=== PATIENT | male | born 1975 ===

== ENCOUNTER 2021-01-25 17:04 | Emergency (ER) | payer BC ==
[2021-01-25] MEDS ORDERED: METOPROLOL TARTRATE 5 MG/5 ML INJ IV ONE ×2 (17:24→21:28)
[2021-01-25 17:40] LABS: Basophils % 0.3 % (0-1.3); Hematocrit 50.4 % (39.6-49.0); Lymphocytes % 11.5 % (15.3-44.8); MPV 7.1 fL (7.6-11.3); RBC Red Blood Cell Count 5.26 M/uL (4.33-5.43)
[2021-01-25 17:58] LABS: Protime INR 0.99
[2021-01-25 18:10] LABS: ALT/SGPT 44 U/L (12-78); AST/SGOT 43 U/L (15-37); Albumin 3.8 g/dL (3.4-5.0); Alkaline Phosphatase 81 U/L (45-117); BUN Blood Urea Nitrogen 19 mg/dL (7-18); Bicarbonate 25 mmol/L (21-32); Bilirubin Direct 0.2 mg/dL (0-0.2); Bilirubin Total 0.7 mg/dL (0.2-1.0); Glucose Level 94 mg/dL (74-106); NT PRO-BNP 26 pg/mL (<125); Potassium 3.3 mmol/L (3.5-5.1); Sodium Level 136 mmol/L (136-145); Troponin (Emerg Dept Use Only) < 0.02 ng/mL (0.0-0.045)
[2021-01-25 18:13] LABS: Magnesium 1.4 mg/dL (1.8-2.4)
[2021-01-25] MEDS ORDERED: POTASSIUM CL SA 10 MEQ TAB PO ONE (18:16)
[2021-01-25] MEDS ORDERED: Magnesium Sulfate 2gm IVPB 2 G/50 ML BAG IV ONE (18:17)
--- NOTE | 2021-01-25 18:17 | RAD REPORT ---
EXAM DESCRIPTION: RAD - Chest Single View - 01/25/2021 5:48 pm CLINICAL HISTORY: chest pain, sob COMPARISON: None TECHNIQUE: AP portable chest image was obtained 01/25/2021 5:48 pm . FINDINGS: Lungs are clear. Heart and vasculature are normal. No measurable pleural effusion and no p neumothorax. No acute bony abnormality seen. No acute aortic findings suspected. IMPRESSION: No acute cardiopulmonary process.
[2021-01-25] MEDS ORDERED: NA CHLORIDE 0.9% 1,000 ML ONE (21:28)
[2021-01-25] MEDS ORDERED: METOPROLOL TAR 25 MG TAB ONE (21:28)
--- NOTE | 2021-01-25 22:40 | EDPHYS ---
Physician Documentation [facility] Name: Ayana Chacko III Age: 45 yrs Sex: Male : 1975 Arrival Date: 01/25/2021 Time: 17:04 Bed 14 Private MD: Steffen Abraham R ED Physician Emil Gonzalez HPI: 01/25 17:12 This 45 yrs old Male presents to ER via Ambulatory with complaints of heart jmm rate racing. 17:12 The patient presents with a history of heart racing. Context: The symptoms occur jmm without known cause. Onset: The symptoms/episode began/occurred acutely, today. Duration: The patient or guardian reports a single episode, that is still ongoing. Modifying factors: The symptoms are aggravated by nothing. The symptoms are alleviated by nothing. This is a 45-year-old male with no chronic medical conditions presents emerged department with complaints of racing heartbeat. This occurred while the patient was at work. Patient states he does perform strenuous activity but this is never occurred before. Patient states that he used to be prescribed a blood pressure medication but is currently not taking it. Denies chest pain but states feeling quite anxious.. Historical: - Allergies: 17:10 No Known Allergies; ld1 - Home Meds: 17:10 None [Active]; ld1 - PMHx: 17:10 None; ld1 - PSHx: 17:10 None; ld1 - Immunization history:: Adult Immunizations up to date, Client reports receiving the 2nd dose of the Covid vaccine. - Social history:: Smoking status: Patient reports the use of cigarette tobacco products, denies chronic smoking, but will smoke occasionally, Patient uses alcohol, occasionally. ROS: 17:12 Constitutional: Negative for fever, chills, and weight loss. jmm 17:12 Cardiovascular: Positive for palpitations. 17:12 All other systems are negative. Exam: 17:12 Head/Face: atraumatic. Eyes: EOMI, no conjunctival erythema appreciated ENT: Moist jmm Mucus Membranes Neck: Trachea midline, Supple Chest/axilla: Normal chest wall appearance and motion. 17:12 Respiratory: Normal respirations, no respiratory distress appreciated Abdomen/GI: Non distended, soft Back: Normal ROM Skin: General appearance color normal MS/ Extremity: Moves all extremities, no obvious deformities appreciated, no edema noted to the lower extremities Neuro: Awake and alert, normal gait Psych: Behavior is normal, Mood is normal, Patient is cooperative and pleasant 17:12 Constitutional: The patient appears alert, awake, anxious, uncomfortable. 17:12 Cardiovascular: Rate: tachycardic, Rhythm: regular. Vital Signs: 17:08 BP 186 / 117; Pulse 127; Resp 18; Temp 97.8(TE); Pulse Ox 100% on R/A; Weight 113.4 kg; ld1 Height 6 ft. 1 in. (185.42 cm); Pain 0/10; 18:15 BP 162 / 103; Pulse 82; Resp 16; Pulse Ox 99% on R/A; bp 19:19 BP 178 / 104; Pulse 83; Resp 16; Pulse Ox 99% on R/A; bp 19:20 BP 169 / 99; bp 20:21 BP 177 / 92; Pulse 92; Resp 20 S; Pulse Ox 95% on R/A; bb 21:30 BP 161 / 90; Pulse 98; Resp 18 S; Pulse Ox 97% on R/A; bb 22:30 BP 150 / 94; Pulse 78; Resp 18; Pulse Ox 96% ; lc1 22:55 BP 150 / 94; Pulse 75; Resp 16; Temp 98.2; Pulse Ox 97% ; ds4 17:08 Body Mass Index 32.98 (113.40 kg, 185.42 cm) ld1 MDM: 17:25 Patient medically screened. [facility] 22:39 Data reviewed: vital signs, nurses notes. Counseling: I had a detailed discussion with yareli the patient and/or guardian regarding: the historical points, exam findings, and any diagnostic results supporting the discharge/admit diagnosis, the need for outpatient follow up, to return to the emergency department if symptoms worsen or persist or if there are any questions or concerns that arise at home. 01/26 01:04 Refusal of service: The patient/guardian displays adequate decision making capability [facility] and despite a detailed discussion of alternatives, benefits, risks, and consequences refuses: Admission to the hospital for further work-up and treatment. ED course: Patient states feeling much better after medication. I did give the patient the option for observation versus follow-up with his primary care provider. Patient elected follow-up this primary care provider tomorrow and was otherwise given strict return precautions. Patient understood and agrees to plan of care.. 01/25 17:12 Order name: Basic Metabolic Panel [facility] 01/25 17:12 Order name: CBC with Diff [facility] 01/25 17:12 Order name: LFT's [facility] 01/25 17:12 Order name: Magnesium [facility] 01/25 17:12 Order name: NT PRO-BNP [facility] 01/25 17:12 Order name: PT-INR [facility] 01/25 17:12 Order name: Troponin (emerg Dept Use Only); Complete Time: 18:15 [facility] 01/25 17:12 Order name: SARS-COV-2 RT PCR (Document "Date of Onset" if Symptomatic); Complete Time: [facility] 18:29 01/25 17:13 Order name: Basic Metabolic Panel; Complete Time: 18:15 [facility] 01/25 17:13 Order name: CBC with Automated Diff; Complete Time: 17:49 [facility] 01/25 17:13 Order name: Liver (Hepatic) Function; Complete Time: 18:15 [facility] 01/25 17:13 Order name: Magnesium; Complete Time: 18:15 [facility] 01/25 17:13 Order name: NT PRO-BNP; Complete Time: 18:15 [facility] 01/25 17:13 Order name: Protime (+INR); Complete Time: 17:59 [facility] 01/25 17:12 Order name: XRAY Chest (1 view); Complete Time: 18:19 [facility] 01/25 17:12 Order name: EKG; Complete Time: 17:13 [facility] 01/25 17:12 Order name: Cardiac monitoring; Complete Time: 17:20 [facility] 01/25 17:12 Order name: EKG - Nurse/Tech; Complete Time: 17:20 [facility] 01/25 17:12 Order name: IV Saline Lock; Complete Time: 17:20 [facility] 01/25 17:12 Order name: Labs collected and sent; Complete Time: 17:33 [facility] 01/25 17:12 Order name: O2 Per Protocol; Complete Time: 17:20 [facility] 01/25 18:16 Order name: CPK; Complete Time: 19:13 [facility] 01/25 21:16 Order name: CT Chest For PE Angio [facility] 01/25 17:12 Order name: O2 Sat Monitoring; Complete Time: 17:20 [facility] Administered Medications: 11/17 17:30 Drug: Metoprolol 5 mg Route: IVP; Site: right antecubital; bp 22:42 Follow up: Response: No adverse reaction lc1 17:32 Drug: NS 0.9% 1000 ml Route: IV; Rate: 1 bolus; Site: right antecubital; bp 18:30 Follow up: IV Status: Completed infusion; IV Intake: 900ml bb 18:31 Drug: Magnesium Sulfate 2 grams Route: IVPB; Infused Over: 2 hrs; Site: right bp antecubital; 20:21 Follow up: IV Status: Completed infusion; IV Intake: 100ml bb 18:31 Drug: Potassium Chloride 40 mEq Route: PO; bp 20:21 Follow up: Response: No adverse reaction bb 21:30 Drug: NS 0.9% 1000 ml Route: IV; Rate: 1 bolus; Site: right antecubital; bb 23:12 Follow up: IV Status: Order to discontinue infusion; IV Intake: 300ml bb 21:41 Drug: Metoprolol 25 mg Route: PO; bb 22:30 Follow up: Response: No adverse reaction bb 22:43 Follow up: Response: No adverse reaction lc1 21:41 Drug: Metoprolol 2.5 mg Route: IVP; Site: right antecubital; bb 22:43 Follow up: Response: Blood pressure is lowered lc1 Disposition Summary: 01/25/21 22:40 Discharge Ordered Location: Home [facility] Condition: Stable [facility] Diagnosis - Tachycardia, unspecified [facility] Followup: [facility] - With: Steffen Abraham MD - When: Tomorrow - Reason: Recheck today's complaints, Continuance of care, Re-evaluation by your physician Discharge Instructions: - Discharge Summary Sheet [facility] - Sinus Tachycardia [facility] Forms: - Medication Reconciliation Form [facility] - Thank You Letter [facility] - Antibiotic Education [facility] - Prescription Opioid Use [facility] Addendum: 01/28/2021 07:38 Co-signature as Attending Physician, Emil Gonzalez MD I agree with the assessment and r n plan of care. Attestation: The patient's history, exam findings, diagnostics, and a summary of any interventions or procedures was reviewed in detail with Travis WRIGHT. Signatures: Dispatcher [employer] Travis Gutierrez PA PA jmm Ballard, Brenda, RN RN bb Emil Gonzalez MD MD rn Peltier, Brian, RN RN bp Regi Arechiga RN RN ld1 Marsha Wiggins
--- NOTE | 2021-01-25 22:40 | ER ---
Nurse's Notes [facility] Name: Ayana Chacko III Age: 45 yrs Sex: Male : 1975 Arrival Date: 01/25/2021 Time: 17:04 Bed 14 Private MD: Steffen Abraham R Diagnosis: Tachycardia, unspecified Presentation: 01/25 17:08 Chief complaint: Patient states: I got home around 3:45 from work this evening and I ld1 started to feel like my heart was racing. Coronavirus screen: At this time, the client does not indicate any symptoms associated with coronavirus-19. Ebola Screen: No symptoms or risks identified at this time. Initial Sepsis Screen: Does the patient meet any 2 criteria? No. Patient's initial sepsis screen is negative. Does the patient have a suspected source of infection? No. Patient's initial sepsis screen is negative. Risk Assessment: Do you want to hurt yourself or someone else? Patient reports no desire to harm self or others. Onset of symptoms was January 25, 2021. 17:08 Method Of Arrival: Ambulatory ld1 17:08 Acuity: ANTHONY 3 ld1 Triage Assessment: 17:10 General: Appears in no apparent distress. comfortable, Behavior is calm, cooperative, ld1 appropriate for age. Pain: Denies pain. EENT: No signs and/or symptoms were reported regarding the EENT system. Neuro: Level of Consciousness is awake, alert, obeys commands, Oriented to person, place, time, situation. Cardiovascular: Capillary refill < 3 seconds Patient's skin is warm and dry. Rhythm is sinus tachycardia. Respiratory: Airway is patent Respiratory effort is even, labored, Respiratory pattern is regular, symmetrical. GI: Abdomen is flat, non-distended. : No signs and/or symptoms were reported regarding the genitourinary system. Derm: No signs and/or symptoms reported regarding the dermatologic system. Musculoskeletal: No signs and/or symptoms reported regarding the musculoskeletal system. Historical: - Allergies: 17:10 No Known Allergies; ld1 - Home Meds: 17:10 None [Active]; ld1 - PMHx: 17:10 None; ld1 - PSHx: 17:10 None; ld1 - Immunization history:: Adult Immunizations up to date, Client reports receiving the 2nd dose of the Covid vaccine. - Social history:: Smoking status: Patient reports the use of cigarette tobacco products, denies chronic smoking, but will smoke occasionally, Patient uses alcohol, occasionally. Screenin:21 Abuse screen: Denies threats or abuse. Nutritional screening: No deficits noted. bb Tuberculosis screening: No symptoms or risk factors identified. Fall Risk None identified. Assessment: 18:14 Reassessment: critical value from lab. mag 1.4. provider notified. bp 21:41 Reassessment: Patient is alert, oriented x 3, equal unlabored respirations, skin bb warm/dry/pink. 22:38 Reassessment: Patient and/or family updated on plan of care and expected duration. Pain lc1 level reassessed. report received from Liza, patient resting in bed, rr even and unlabored, call spicer within reach . 23:10 Reassessment: Patient is alert, oriented x 3, equal unlabored respirations, skin bb warm/dry/pink. pt verbalized understanding of and agrees to plan of care discharge instructions given pt ambulated with steady gait to exit. Vital Signs: 17:08 BP 186 / 117; Pulse 127; Resp 18; Temp 97.8(TE); Pulse Ox 100% on R/A; Weight 113.4 kg; ld1 Height 6 ft. 1 in. (185.42 cm); Pain 0/10; 18:15 BP 162 / 103; Pulse 82; Resp 16; Pulse Ox 99% on R/A; bp 19:19 BP 178 / 104; Pulse 83; Resp 16; Pulse Ox 99% on R/A; bp 19:20 BP 169 / 99; bp 20:21 BP 177 / 92; Pulse 92; Resp 20 S; Pulse Ox 95% on R/A; bb 21:30 BP 161 / 90; Pulse 98; Resp 18 S; Pulse Ox 97% on R/A; bb 22:30 BP 150 / 94; Pulse 78; Resp 18; Pulse Ox 96% ; lc1 22:55 BP 150 / 94; Pulse 75; Resp 16; Temp 98.2; Pulse Ox 97% ; ds4 17:08 Body Mass Index 32.98 (113.40 kg, 185.42 cm) ld1 ED Course: 17:04 Patient arrived in ED. am2 17:04 Steffen Abraham MD is Private Physician. am2 17:10 Triage completed. ld1 17:10 Arm band placed on right wrist. ld1 17:12 Travis Watson PA is PHCP. jmm 17:12 Emil Gonzalez MD is Attending Physician. jmm 17:15 Annette Haro, CYNDIE is Primary Nurse. kd3 17:20 Inserted saline lock: 20 gauge in right antecubital area, using aseptic technique. ld1 Blood collected. 17:32 Basic Metabolic Panel Sent. bp 17:32 CBC with Diff Sent. bp 17:32 LFT's Sent. bp 17:32 NT PRO-BNP Sent. bp 17:32 Magnesium Sent. bp 17:33 PT-INR Sent. bp 17:48 XRAY Chest (1 view) In Process Unspecified. EDMS 20:21 Patient has correct armband on for positive identification. quality assurance monitor body on. Pulse bb ox on. NIBP on. Warm blanket given. 20:21 IV is patent, is intact. bb 21:59 CT Chest For PE Angio In Process Unspecified. EDMS 22:30 Door closed. Noise minimized. Lights dimmed. lc1 22:30 No provider procedures requiring assistance completed. lc1 22:39 Steffen Abraham MD is Referral Physician. jmm 23:10 IV discontinued, intact, bleeding controlled, No redness/swelling at site. Pressure bb dressing applied. Administered Medications: 17:30 Drug: Metoprolol 5 mg Route: IVP; Site: right antecubital; bp 22:42 Follow up: Response: No adverse reaction lc1 17:32 Drug: NS 0.9% 1000 ml Route: IV; Rate: 1 bolus; Site: right antecubital; bp 18:30 Follow up: IV Status: Completed infusion; IV Intake: 900ml bb 18:31 Drug: Magnesium Sulfate 2 grams Route: IVPB; Infused Over: 2 hrs; Site: right bp antecubital; 20:21 Follow up: IV Status: Completed infusion; IV Intake: 100ml bb 18:31 Drug: Potassium Chloride 40 mEq Route: PO; bp 20:21 Follow up: Response: No adverse reaction bb 21:30 Drug: NS 0.9% 1000 ml Route: IV; Rate: 1 bolus; Site: right antecubital; bb 23:12 Follow up: IV Status: Order to discontinue infusion; IV Intake: 300ml bb 21:41 Drug: Metoprolol 25 mg Route: PO; bb 22:30 Follow up: Response: No adverse reaction bb 22:43 Follow up: Response: No adverse reaction lc1 21:41 Drug: Metoprolol 2.5 mg Route: IVP; Site: right antecubital; bb 22:43 Follow up: Response: Blood pressure is lowered lc1 Intake: 18:30 IV: 900ml; Total: 900ml. bb 20:21 IV: 100ml; Total: 1000ml. bb 23:12 IV: 300ml; Total: 1300ml. bb Outcome: 22:40 Discharge ordered by . lavell 23:11 Discharged to home ambulatory. bb 23:11 Condition: stable 23:11 Discharge instructions given to patient, Instructed on discharge instructions, follow up and referral plans. Demonstrated understanding of instructions, follow-up care. 23:13 Patient left the ED. bb Signatures: Dispatcher [employer] EDMS Travis Watson PA PA jmm Ballard, Brenda, RN RN bb Marsha Wiggins lc1 Romaine Munoz ds4 Neli Ellis am2 Momo Joseph RN RN bp Regi Arechiga RN RN ld1 Annette Haro RN RN kd3
[2021-01-26 00:43] VITALS: BP 150/94
[2021-01-26 00:45] VITALS: TEMP 98.2; O2SAT 97
--- NOTE | 2021-01-26 13:18 | RAD REPORT ---
EXAM DESCRIPTION: Chest For Pe Angio CLINICAL HISTORY: 45-year-old male with shortness of breath. COMPARISON: None. TECHNIQUE: CT angiography of the pulmonary arteries was performed following intravenous administrati on of contrast. Coronal and bilateral oblique maximum intensity projections (MIPS) were created. This exam was performed according to our departmental dose optimization program which includes use of aut omated exposure control, adjustment of the mA and/or kV according to patient size and/or use of itera tive reconstruction technique. FINDINGS: Chest: Evaluation through the lungs reveals no focal opacity, pleural effusion or pneumothorax. There is min imal dependent basilar atelectasis and scarring. The tracheobronchial airways are patent. No signific ant mediastinal or axillary lymphadenopathy by CT measurement criteria. RIGHT hilar calcification sug gestive of sequela of prior granulomatous disease. Limited evaluation of the upper abdomen shows no acute intra-abdominal abnormalities. The osseous structures are within normal limits. CT angiography: Diagnostic CT angiography of the pulmonary arteries without intraluminal filling defe ct noted to suggest proximal pulmonary arterial embolus. However, motion limited examination through the lung bases limits evaluation for distal small pulmonary emboli. IMPRESSION: 1. Diagnostic pulmonary angiography without findings to suggest proximal pulmonary arter ial embolus. However, motion limited examination through the lung bases limits evaluation for distal small pulmonary emboli. 2. The lungs are clear without focal opacity, pleural effusion or pneumothorax. 3. No specific findings are noted to suggest etiology of the patient's chest pain and shortness of br eath. Electronically signed by: Shila Roman MD 01/25/2021 10:32 PM [employer] DAMAGE APPRAISER Due to temporary technical issues with the PACS/Fluency reporting system, reports are being signed by the in house radiologists without review as a courtesy to insure prompt reporting. The interpreting radiologist is fully responsible for the content of the report.
== END 2021-01-25 23:13 | disposition home or self-care (01) ==
LOC: ER 17:04
DX: R00.0 Tachycardia, unspecified (principal); F17.210 Nicotine dependence, cigarettes, uncomplicated; Z20.822 Contact with and (suspected) exposure to COVID-19
CPT/HCPCS: 96365; 96361; 93005; 85025; 80048; 36415; 83735; 82550; 85610; 80076; 84484; 83880; 71275; 71045; 96375; 99284; 96366; U0003; Q9967; J3475; J7030

== ENCOUNTER 2021-08-28 14:23 | Emergency (ER) | payer BC ==
[2021-08-28] MEDS ORDERED: NA CHLORIDE 0.9% 2,000 ML ONE (15:44)
[2021-08-28] MEDS ORDERED: ONDANSETRON 4 MG/2 ML VIAL ONE ×2 (15:44→17:15)
[2021-08-28 18:26] LABS: Urine Blood Negative (Negative); Urine Glucose Negative (Negative); Urine Protein 1+ (Negative); Urine Specific Gravity >=1.030 (1.005-1.030); Urine pH 6.5 (5.0-7.0)
[2021-08-28] MEDS ORDERED: ACETAMINOPHEN 500 MG TAB ONE (18:34)
[2021-08-28] MEDS ORDERED: NA CHLORIDE 0.9% 1,000 ML ONE (19:05)
--- NOTE | 2021-08-28 20:29 | EDPHYS ---
Physician Documentation [facility] Name: Ayana Chacko III Age: 45 yrs Sex: Male : 1975 Arrival Date: 08/28/2021 Time: 14:25 Bed Treatment Private MD: ED Physician Jame Silverio HPI: 08/28 15:33 This 45 yrs old Male presents to ER via Ambulatory with complaints of Abnormal Lab pm1 Results. 15:33 The patient presents to the emergency department with nausea, vomiting, diarrhea. pm1 Onset: The symptoms/episode began/occurred yesterday. Possible causes: unknown. The symptoms are aggravated by nothing. The symptoms are alleviated by nothing. Associated signs and symptoms: Pertinent negatives: abdominal pain, dysuria, fever. Severity of symptoms: in the emergency department the symptoms are unchanged. The patient has not experienced similar symptoms in the past. The patient has been recently seen by a physician: the patient's primary care provider, Dr. Abraham earlier today, with similar presenting complaints, and apparently given a diagnosis of Dehydration, lab tests were done, and was sent to the [facility] Emergency Department for further evaluation. 15:33 [place] [employer] but likelihood of dehydration from pm1 possibly not drinking enough fluids. Patient was feeling weak and went to his PCP who laila blood work here and Dr. Hernandez sent the patient to the ER for evaluation and IV fluids. Historical: - Allergies: 15:10 No Known Allergies; aa5 - PMHx: 15:10 None; aa5 - PSHx: 15:10 None; aa5 ROS: 15:33 Constitutional: Negative for fever, chills, and weight loss, Cardiovascular: Negative pm1 for chest pain, palpitations, and edema, Respiratory: Negative for shortness of breath, cough, wheezing, and pleuritic chest pain, Abdomen/GI: Negative for abdominal pain, nausea, vomiting, diarrhea, and constipation, Back: Negative for injury and pain, MS/Extremity: Negative for injury and deformity, Skin: Negative for injury, rash, and discoloration. 15:33 Neuro: Positive for generalized weakness, Negative for headache, focal weakness. 15:33 All other systems are negative. Exam: 15:33 Constitutional: This is a well developed, well nourished patient who is awake, alert, pm1 and in no acute distress. Head/Face: Normocephalic, atraumatic. 15:33 Back: No spinal tenderness. No costovertebral tenderness. Full range of motion. Skin: Warm, dry with normal turgor. Normal color with no rashes, no lesions, and no evidence of cellulitis. MS/ Extremity: Pulses equal, no cyanosis. Neurovascular intact. Full, normal range of motion. 15:33 Eyes: Exam is negative for acute changes, Pupils: no acute changes, Extraocular movements: intact throughout, Conjunctiva: no acute changes, no injection. 15:33 ENT: Exam is negative for acute changes, Mouth: no acute changes, Lips: normal, moist, Oral mucosa: normal, pink and intact, moist. 15:33 Cardiovascular: Exam negative for acute changes, Rate: tachycardic, Rhythm: regular, Pulses: no pulse deficits are appreciated. 15:33 Respiratory: Exam negative for acute changes, respiratory distress, shortness of breath, Breath sounds: are clear throughout. 15:33 Abdomen/GI: Exam negative for acute changes, Inspection: abdomen appears normal, Palpation: abdomen is soft and non-tender, in all quadrants. 15:33 Neuro: Exam negative for acute changes, Orientation: is normal, Mentation: is normal, Motor: is normal, moves all fours. Vital Signs: 15:28 BP 162 / 119; Pulse 120; Resp 20 S; Temp 97.6(TE); Pulse Ox 100% on R/A; Weight 117.93 aa5 kg (R); Height 6 ft. 1 in. (185.42 cm) (R); 17:24 BP 157 / 117; Pulse 86; Resp 18; Pulse Ox 100% on R/A; iw 18:46 BP 163 / 98 RA Supine; Pulse 103; Resp 16; Pulse Ox 98% on R/A; dh3 18:48 BP 145 / 91 RA Sitting; Pulse 114; Resp 16; Pulse Ox 100% on R/A; dh3 18:50 BP 135 / 99 RA Standing; Pulse 119; Resp 18; Pulse Ox 97% on R/A; dh3 20:49 BP 158 / 108; Pulse 82; Resp 18 S; Pulse Ox 98% on R/A; bb 15:28 Body Mass Index 34.30 (117.93 kg, 185.42 cm) aa5 MDM: 15:38 Patient medically screened. pm1 20:27 Data reviewed: vital signs. Data interpreted: Pulse oximetry: on room air is 97 %. pm1 Interpretation: normal. Counseling: I had a detailed discussion with the patient and/or guardian regarding: the historical points, exam findings, and any diagnostic results supporting the discharge/admit diagnosis, lab results, the need for outpatient follow up, to return to the emergency department if symptoms worsen or persist or if there are any questions or concerns that arise at home. 20:27 ED course: Patient is requesting medication for reflux, will give the patient pm1 medications for treatment and then discharge home for follow up with his PCP. 08/28 15:32 Order name: CPK; Complete Time: 16:14 pm1 08/28 15:32 Order name: Flu; Complete Time: 16:14 pm1 08/28 15:32 Order name: COVID-19 SARS RT PCR (Document "Date of Onset" if Symptomatic); Complete pm1 Time: 17:43 08/28 15:32 Order name: Strep; Complete Time: 16:14 pm1 08/28 16:10 Order name: Throat Culture EDNM 08/28 18:27 Order name: Urine Dipstick-Ancillary; Complete Time: 18:42 EDMS 08/28 15:32 Order name: Urine Dipstick-Ancillary (obtain specimen); Complete Time: 18:27 pm1 08/28 18:45 Order name: Orthostatic Blood Pressure; Complete Time: 18:58 pm1 Administered Medications: 15:40 Drug: NS 0.9% 1000 ml Route: IV; Rate: 1000 ml; Site: left antecubital; aa5 15:40 Drug: Zofran (Ondansetron) 4 mg Route: IVP; Site: left antecubital; aa5 15:44 Drug: NS 0.9% 1000 ml Route: IV; Rate: 1000 ml; Site: left antecubital; aa5 18:32 Drug: Tylenol 1000 mg Route: PO; ld1 19:02 Drug: NS 0.9% 1000 ml Route: IV; Rate: 1000 ml; Site: left antecubital; ld1 20:35 Follow up: IV Status: Completed infusion; IV Intake: 1000ml bb 20:35 Drug: GI Cocktail without - (Maalox Suspension 30 ml, Lidocaine Liquid 2 % 15 bb ml) Route: PO; 20:48 Follow up: Response: No adverse reaction bb Disposition Summary: 08/28/21 20:29 Discharge Ordered Location: Home pm1 Condition: Stable pm1 Problem: new pm1 Symptoms: have improved pm1 Diagnosis - Dehydration pm1 Followup: pm1 - With: Emergency Department - When: As needed - Reason: Worsening of condition Followup: pm1 - With: Private Physician - When: 2 - 3 days - Reason: Recheck today's complaints, Continuance of care, Re-evaluation by your physician Discharge Instructions: - Discharge Summary Sheet pm1 - Dehydration, Adult pm1 - Rehydration, Adult pm1 Forms: - Medication Reconciliation Form pm1 - Work release form pm1 - Thank You Letter pm1 - Antibiotic Education pm1 - Prescription Opioid Use pm1 Signatures: Dispatcher [employer] Liza Liu RN RN bb Becka Bowers RN RN aa5 Joshua Felix NP ACTIVE DIRECTORY ADMINISTRATOR pm1 Regi Arechiga RN RN ld1
--- NOTE | 2021-08-28 20:29 | ER ---
Nurse's Notes [facility] Name: Ayana Chacko III Age: 45 yrs Sex: Male : 1975 Arrival Date: 08/28/2021 Time: 14:25 Bed Treatment Private MD: Diagnosis: Dehydration Presentation: 08/28 15:28 Chief complaint: Patient states: sent here by Dr. Hernandez for dehydration, reports he just aa5 had labs drawn here at the hospital this morning. Reports chills, diarrhea, vomiting, and sore throat. Coronavirus screen: diarrhea, headache, vomiting. Ebola Screen: No symptoms or risks identified at this time. Onset of symptoms was August 2021. 15:28 Acuity: ANTHONY 3 aa5 15:28 Method Of Arrival: Ambulatory aa5 15:28 Initial Sepsis Screen: Does the patient meet any 2 criteria? HR > 90 bpm. Does the aa5 patient have a suspected source of infection? No. Patient's initial sepsis screen is negative. Risk Assessment: Do you want to hurt yourself or someone else? Patient reports no desire to harm self or others. Historical: - Allergies: 15:10 No Known Allergies; aa5 - PMHx: 15:10 None; aa5 - PSHx: 15:10 None; aa5 Screenin:24 Abuse screen: Denies threats or abuse. Denies injuries from another. Nutritional iw screening: No deficits noted. Tuberculosis screening: No symptoms or risk factors identified. Fall Risk None identified. Assessment: 17:24 Reassessment: Patient appears in no apparent distress at this time. Patient is alert, iw oriented x 3, equal unlabored respirations, skin warm/dry/pink. Pain: Denies pain. Neuro: Level of Consciousness is awake, alert, obeys commands, Oriented to person, place, time, situation. Cardiovascular: Capillary refill < 3 seconds Patient's skin is warm and dry. Rhythm is sinus rhythm. Respiratory: Airway is patent Respiratory effort is even, unlabored. GI: Abdomen is flat, non-distended. : No signs and/or symptoms were reported regarding the genitourinary system. EENT: No signs and/or symptoms were reported regarding the EENT system. Derm: No signs and/or symptoms reported regarding the dermatologic system. 19:02 Reassessment: Patient appears in no apparent distress at this time. Patient and/or ld1 family updated on plan of care and expected duration. Pain level reassessed. Patient is alert, oriented x 3, equal unlabored respirations, skin warm/dry/pink. 20:48 Reassessment: Patient is alert, oriented x 3, equal unlabored respirations, skin bb warm/dry/pink. pt verbalized understanding of and agrees to plan of care discharge instructions given pt ambulated with steady gait to exit. Vital Signs: 15:28 BP 162 / 119; Pulse 120; Resp 20 S; Temp 97.6(TE); Pulse Ox 100% on R/A; Weight 117.93 aa5 kg (R); Height 6 ft. 1 in. (185.42 cm) (R); 17:24 BP 157 / 117; Pulse 86; Resp 18; Pulse Ox 100% on R/A; iw 18:46 BP 163 / 98 RA Supine; Pulse 103; Resp 16; Pulse Ox 98% on R/A; dh3 18:48 BP 145 / 91 RA Sitting; Pulse 114; Resp 16; Pulse Ox 100% on R/A; dh3 18:50 BP 135 / 99 RA Standing; Pulse 119; Resp 18; Pulse Ox 97% on R/A; dh3 20:49 BP 158 / 108; Pulse 82; Resp 18 S; Pulse Ox 98% on R/A; bb 15:28 Body Mass Index 34.30 (117.93 kg, 185.42 cm) aa5 ED Course: 14:25 Patient arrived in ED. as 15:11 Arm band placed on. aa5 15:29 Triage completed. aa5 15:31 Joshua Felix NP is PHCP. pm1 15:31 Jame Silverio MD is Attending Physician. pm1 15:38 Initial lab(s) drawn, by ia, sent to lab. Inserted saline lock: 20 gauge in left aa5 antecubital area, using aseptic technique. Blood collected. 17:24 Krystle Durand, RN is Primary Nurse. iw 17:24 Patient has correct armband on for positive identification. Placed in gown. Bed in low iw position. Call light in reach. Side rails up X2. case monitor on. Pulse ox on. NIBP on. Door closed. Noise minimized. Warm blanket given. 17:24 No provider procedures requiring assistance completed. iw 20:49 IV discontinued, intact, bleeding controlled, No redness/swelling at site. Pressure bb dressing applied. Administered Medications: 15:40 Drug: NS 0.9% 1000 ml Route: IV; Rate: 1000 ml; Site: left antecubital; aa5 15:40 Drug: Zofran (Ondansetron) 4 mg Route: IVP; Site: left antecubital; aa5 15:44 Drug: NS 0.9% 1000 ml Route: IV; Rate: 1000 ml; Site: left antecubital; aa5 18:32 Drug: Tylenol 1000 mg Route: PO; ld1 19:02 Drug: NS 0.9% 1000 ml Route: IV; Rate: 1000 ml; Site: left antecubital; ld1 20:35 Follow up: IV Status: Completed infusion; IV Intake: 1000ml bb 20:35 Drug: GI Cocktail without - (Maalox Suspension 30 ml, Lidocaine Liquid 2 % 15 bb ml) Route: PO; 20:48 Follow up: Response: No adverse reaction bb Intake: 20:35 IV: 1000ml; Total: 1000ml. bb Outcome: 20:29 Discharge ordered by MD. pm1 20:49 Discharged to home ambulatory. bb 20:49 Condition: stable 20:49 Discharge instructions given to patient, Instructed on discharge instructions, follow up and referral plans. Demonstrated understanding of instructions, follow-up care. 20:50 Patient left the ED. bb Signatures: Valerie Peralta Brenda, RN RN bb Krystle Durand RN RN Becka Bowers RN RN aa5 Joshua Felix, CENTER MACHINE SET UP OPERATOR CENTER MACHINE SET UP OPERATOR pm1 Laura Huff 3 Regi Arechiga RN RN ld1 Corrections: (The following items were deleted from the chart) 15:32 15:28 BP 162 / 119; Pulse 120bpm; Resp 20bpm; Spontaneous; Pulse Ox 100% RA; aa5 aa5
[2021-08-28] MEDS ORDERED: LIDOCAINE VISCOUS 2% SOLN 15 ML UDC ONE (20:35)
[2021-08-28] MEDS ORDERED: MAGNES/ALUMIN/SIMET 30ML UCUP ONE (20:35)
[2021-08-28 21:08] VITALS: TEMP 97.6
[2021-08-28 21:17] VITALS: BP 158/108; O2SAT 98
== END 2021-08-28 20:50 | disposition home or self-care (01) ==
LOC: ER 14:23
DX: E86.0 Dehydration (principal); Z20.822 Contact with and (suspected) exposure to COVID-19
CPT/HCPCS: 87070; 36415; 82550; 87081; 81003; 87804 ×2; U0003; J7030 ×2; J2405 ×2; 96361; 96374; 99284

== ENCOUNTER 2022-10-24 16:18 | Emergency (ER) | payer BC ==
[2022-10-24] MEDS ORDERED: NA CHLORIDE 0.9% 1,000 ML ONE (17:01)
[2022-10-24 17:24] LABS: Absolute Lymphocytes (CBC) 0.6 K/uL (0.7-4.9); Hematocrit 51.3 % (39.6-49.0); Lymphocytes % 4.1 % (15.3-44.8); MCV 89.8 fL (80-100); MPV 7.8 fL (7.6-11.3); Platelets 183 thou/uL (152-406); RBC Red Blood Cell Count 5.72 M/uL (4.33-5.43)
[2022-10-24 17:31] LABS: Albumin 2.6 g/dL (3.4-5.0); Bilirubin Total 1.1 mg/dL (0.2-1.0); Potassium 3.9 mEq/L (3.5-5.1); Protein, Total 7.1 g/dL (6.4-8.2)
--- NOTE | 2022-10-24 18:26 | RAD REPORT ---
EXAM DESCRIPTION: CTAbdomen Pelvis W Contrast - 10/24/2022 6:06 pm CLINICAL HISTORY: Abdominal pain. ABD PAIN COMPARISON: <Comparisons> TECHNIQUE: Biphasic CT imaging of the abdomen and pelvis was performed with 100 ml non-ionic IV cont rast. All CT scans are performed using dose optimization technique as appropriate and may include automated exposure control or mA/KV adjustment according to patient size. FINDINGS: The lung bases are clear. The liver liver is diffusely fatty. Spleen, adrenal glands and kidneys are within normal limits. Chol elithiasis. Mild inflammation surrounding the pancreas most compatible with acute pancreatitis. No pa ncreatic necrosis ductal dilatation or pseudocyst. No portal vein thrombus. No bowel obstruction, free air, free fluid or abscess. The appendix is normal. No evidence of signi ficant lymphadenopathy. Small fat containing left inguinal hernia. No suspicious bony findings. IMPRESSION: Acute pancreatitis, mild in severity without complication seen. Cholelithiasis. Fatty liver.
--- NOTE | 2022-10-24 19:00 | ER ---
Nurse's Notes [facility] Name: Ayana Chacko III Age: 47 yrs Sex: Male : 1975 Arrival Date: 10/24/2022 Time: 16:18 Bed 11 Private MD: Diagnosis: Acute pancreatitis without necrosis or infection, unspecified Presentation: 10/24 16:35 Chief complaint: Patient states: he started having low abdominal pain and difficulty ap3 urinating for "a few days now". patient states his urine has progressively gotten darker and is now the color of tea. patient rates his pain as a 5/10 at this time. Coronavirus screen: At this time, the client does not indicate any symptoms associated with coronavirus-19. Ebola Screen: No symptoms or risks identified at this time. Initial Sepsis Screen: Does the patient meet any 2 criteria? HR > 90 bpm. Does the patient have a suspected source of infection? No. Patient's initial sepsis screen is negative. Risk Assessment: Do you want to hurt yourself or someone else? Patient reports no desire to harm self or others. Onset of symptoms is unknown. 16:35 Method Of Arrival: Ambulatory ap3 16:35 Acuity: ANTHONY 3 ap3 Triage Assessment: 16:38 General: Appears uncomfortable, Behavior is calm, cooperative, appropriate for age. ap3 Pain: Complains of pain in suprapubic area, right lower quadrant and left lower quadrant Pain currently is 5 out of 10 on a pain scale. at worst was 10 out of 10 on a pain scale. Neuro: Level of Consciousness is awake, alert, obeys commands, Oriented to person, place, time, situation, Gait is steady. Cardiovascular: Patient's skin is warm and dry. Respiratory: Airway is patent Respiratory effort is even, unlabored, Respiratory pattern is regular, symmetrical. : Reports inability to void, pain with urination. Historical: - Allergies: 16:37 No Known Allergies; ap3 - Home Meds: 16:37 amlodipine oral [Active]; atorvastatin oral [Active]; trazodone 100 mg Oral tablet ap3 [Active]; valsartan 320 mg oral tablet daily [Active]; - PMHx: 16:37 Hypertensive disorder; Hypercholesterolemia; ap3 - Immunization history:: Client reports receiving the 2nd dose of the Covid vaccine. - Social history:: Smoking status: Patient denies any tobacco usage or history of. Patient uses alcohol, occasionally. street drugs, marijuana. Screenin:[address] [facility] ED Fall Risk Assessment (Adult) History of falling in the last 3 months, ap3 including since admission No falls in past 3 months (0 pts). Abuse screen: Denies threats or abuse. Nutritional screening: No deficits noted. Tuberculosis screening: No symptoms or risk factors identified. Assessment: 20:14 General: Appears in no apparent distress. Behavior is calm, cooperative. Neuro: Level kd3 of Consciousness is awake, alert, obeys commands, Oriented to person, place, time, situation. Vital Signs: 16:35 BP 120 / 95; Pulse 117; Resp 18; Temp 98.5; Pulse Ox 98% ; Weight 123.38 kg; Pain 5/10; ap3 20:14 BP 125 / 84; Pulse 98; Resp 18; Pulse Ox 99% on R/A; kd3 16:35 Pain Scale: Adult ap3 ED Course: 16:19 Patient arrived in ED. rg4 16:21 [facility]C [facility] kb 16:21 Lazaro Carias MD is Attending Physician. kb 16:35 Neli Jaramillo, CYNDIE is Primary Nurse. ap3 16:37 Triage completed. ap3 16:39 Arm band placed on right wrist. ap3 16:39 Patient has correct armband on for positive identification. Bed in low position. Call ap3 light in reach. Side rails up X 1. Pulse ox on. NIBP on. 16:55 Initial lab(s) drawn, by me, sent to lab. Inserted saline lock: 20 gauge in right ap3 antecubital area, using aseptic technique. Blood collected. 16:56 CBC with Diff Sent. ap3 16:56 CMP Sent. ap3 16:56 Lipase Sent. ap3 18:07 CT Abd/Pelvis - IV Contrast Only In Process Unspecified. EDMS 18:54 Adebayo Vale MD is Hospitalizing Provider. kb 20:13 Provided Education on: . kd3 20:13 No provider procedures requiring assistance completed. IV discontinued, intact, kd3 bleeding controlled, No redness/swelling at site. Pressure dressing applied. Administered Medications: 16:56 Drug: NS 0.9% IV 1000 ml Route: IV; Rate: 1 bolus; Site: right antecubital; ap3 20:13 Not Given (pt discharged ): NS 0.9% IV 1000 ml IV at 125 ml/hr continuous kd3 20:13 Drug: NS 0.9% IV 1000 ml Route: IV; Rate: 1000 ml; Site: right antecubital; kd3 20:13 Follow up: IV Status: Completed infusion; IV Intake: 900ml kd3 Medication: 20:14 VIS not applicable for this client. kd3 Intake: 20:13 IV: 900ml; Total: 900ml. kd3 Outcome: 18:59 Decision to Hospitalize by Provider. kb 19:56 Discharge ordered by MD. kb 20:13 Discharged to home ambulatory. kd3 20:13 Condition: stable 20:13 Discharge instructions given to patient, Instructed on discharge instructions, follow up and referral plans. Demonstrated understanding of instructions, follow-up care. 20:14 Patient left the ED. kd3 Signatures: Dispatcher [employer] EDTX Diane Petersen, IN HOME AIDE-C IN HOME AIDE-Sharona Stack rg4 Neli Jaramillo, RN RN ap3 Annette Haro RN RN kd3
--- NOTE | 2022-10-24 19:00 | EDPHYS ---
Physician Documentation [facility] Name: Ayana Chacko III Age: 47 yrs Sex: Male : 1975 Arrival Date: 10/24/2022 Time: 16:18 Bed 11 Private MD: ED Physician Lazaro Carias HPI: 10/24 17:28 This 47 yrs old Male presents to ER via Ambulatory with complaints of Unable To Urinate.kb 17:28 The patient presents with abdominal pain in the lower abdomen. Onset: The kb symptoms/episode began/occurred 3 day(s) ago. The symptoms do not radiate. Associated signs and symptoms: Pertinent positives: Dark urine and difficulty urinating. The symptoms are described as constant. Modifying factors: The symptoms are alleviated by nothing, the symptoms are aggravated by nothing. Severity of pain: At its worst the pain was mild moderate in the emergency department the pain is unchanged. The patient has not experienced similar symptoms in the past. The patient has not recently seen a physician. Patient reports lower abdominal pain and dark urine with difficulty urinating for 3 days. Denies fever, nausea, vomiting, diarrhea. States urine was tea colored today. Patient does work outdoors and states he seems to not be able to get enough water intake. Historical: - Allergies: 16:37 No Known Allergies; ap3 - Home Meds: 16:37 amlodipine oral [Active]; atorvastatin oral [Active]; trazodone 100 mg Oral tablet ap3 [Active]; valsartan 320 mg oral tablet daily [Active]; - PMHx: 16:37 Hypertensive disorder; Hypercholesterolemia; ap3 - Immunization history:: Client reports receiving the 2nd dose of the Covid vaccine. - Social history:: Smoking status: Patient denies any tobacco usage or history of. Patient uses alcohol, occasionally. street drugs, marijuana. ROS: 17:26 Constitutional: Negative for fever, chills, and weight loss. kb 17:26 Abdomen/GI: Positive for abdominal pain. 17:26 : Positive for difficulty urinating, Dark urine. 17:26 All other systems are negative. Exam: 17:26 Constitutional: This is a well developed, well nourished patient who is awake, alert, kb and in no acute distress. Head/Face: Normocephalic, atraumatic. ENT: Moist Mucous membranes Cardiovascular: Regular rate and rhythm with a normal S1 and S2. No gallops, murmurs, or rubs. No pulse deficits. Respiratory: Respirations even and unlabored. No increased work of breathing. Talking in full sentences Skin: Warm, dry with normal turgor. Normal color. MS/ Extremity: Pulses equal, no cyanosis. Neurovascular intact. Full, normal range of motion. Neuro: Awake and alert, GCS 15, oriented to person, place, time, and situation. Moves all extremities. Normal gait. 17:26 Abdomen/GI: Inspection: abdomen appears normal, Bowel sounds: normal, Palpation: soft, in all quadrants, mild abdominal tenderness, in the right lower quadrant and left lower quadrant. 17:26 Back: CVA tenderness, that is mild, is noted on the right, is noted on the left. Vital Signs: 16:35 BP 120 / 95; Pulse 117; Resp 18; Temp 98.5; Pulse Ox 98% ; Weight 123.38 kg; Pain 5/10; ap3 20:14 BP 125 / 84; Pulse 98; Resp 18; Pulse Ox 99% on R/A; kd3 16:35 Pain Scale: Adult ap3 MDM: 16:22 Patient medically screened. kb 17:27 Differential diagnosis: Dehydration, appendicitis, kidney stone, electrolyte kb abnormality, UTI. Data reviewed: vital signs, nurses notes. 18:53 Consideration of Admission/Observation Patient was admitted/placed on observation. kb Escalation of care including admission/observation considered. Management of patient was discussed with the following: Hospitalist: Sharif shopfitter accepts pt for admission. Care significantly affected by the following chronic conditions: Hypertension, high cholesterol. Counseling: I had a detailed discussion with the patient and/or guardian regarding the historical points, exam findings, and any diagnostic results supporting the discharge/admit diagnosis, lab results, radiology results, the need for further work-up and treatment in the hospital. 19:54 ED course: Pt does not want to be admitted. Educated on home treatment and return kb precautions by hospitalist. 19:55 ED course: Consulted for admission for pancreatitis. When I went to speak with patient la1 he did not want to stay in the hospital, we discussed his diagnostic findings at length including acute pancreatitis, fatty liver, mildly elevated triglyceride levels, and his sinus tachycardia. He reports that the tachycardia is baseline for him and has been going on for many years now, he reports his pain is very mild and tolerable. He received 2 L of IV fluids in the emergency department, he was counseled extensively on need for cessation of alcohol. Recommended clear liquid diet advancing to full liquid diet for the next 24 to 48 hours followed by slow advancing diet back to regular diet as well as close follow-up with his primary care doctor. He was also counseled extensively on return precautions for acute pancreatitis. He will follow-up with Dr. Costa his PCP. Patient agreeable with plan.. 10/24 16:34 Order name: CBC with Diff; Complete Time: 17:26 kb 10/24 16:34 Order name: CMP; Complete Time: 17:33 kb 10/24 16:34 Order name: Lipase; Complete Time: 17:33 kb 10/24 18:51 Order name: Lipid Profile; Complete Time: 19:44 kb 10/24 16:34 Order name: CT Abd/Pelvis - IV Contrast Only; Complete Time: 18:31 kb 10/24 16:34 Order name: IV Saline Lock; Complete Time: 16:56 kb 10/24 16:34 Order name: Labs collected and sent; Complete Time: 16:56 kb Administered Medications: 16:56 Drug: NS 0.9% IV 1000 ml Route: IV; Rate: 1 bolus; Site: right antecubital; ap3 20:13 Not Given (pt discharged ): NS 0.9% IV 1000 ml IV at 125 ml/hr continuous kd3 20:13 Drug: NS 0.9% IV 1000 ml Route: IV; Rate: 1000 ml; Site: right antecubital; kd3 20:13 Follow up: IV Status: Completed infusion; IV Intake: 900ml kd3 Disposition: 10/25 10:03 Co-signature as Attending Physician, Lazaro Carias MD I reviewed the patient's care rt provided by the Advanced Practice Provider and agree with the diagnosis and treatment plan. Disposition Summary: 10/24/22 19:56 Discharge Ordered Location: Home(10/24/22 19:56) kb Condition: Stable(10/24/22 19:56) kb Diagnosis - Acute pancreatitis without necrosis or infection, unspecified(10/24/22 19:56) kb Followup: kb - With: Emergency Department - When: As needed - Reason: Worsening of condition Followup: kb - With: Private Physician - When: 2 - 3 days - Reason: Recheck today's complaints, Continuance of care, Re-evaluation by your physician Discharge Instructions: - Discharge Summary Sheet kb - Acute Pancreatitis, [id number] kb Forms: - Medication Reconciliation Form kb - Thank You Letter kb - Antibiotic Education kb - Prescription Opioid Use kb - Patient Portal Instructions kb - Leadership Thank You Letter kb Signatures: Dispatcher [employer] EDMS Diane Petersen, DENNIS-C PLATE PAINTER-Ckb Austin SharifDENISC PLATE PAINTER-Cla1 Neli Jaramillo, RN RN ap3 Annette Haro RN RN kd3 Lazaro Carias MD MD rt Corrections: (The following items were deleted from the chart) 10/24 17:29 17:28 Patient reports lower abdominal pain and dark urine with difficulty urinating for kb 3 days. Denies fever, nausea, vomiting, diarrhea. States urine was tea colored today. kb 19:56 18:59 Inpatient Admission kb kb 19:56 18:59 KavinAdebayo victor kb kb 19:56 18:59 Telemetry/MedSurg (Inpatient) kb kb 19:56 18:59 Stable kb kb 19:56 18:59 new kb kb 19:56 18:59 are unchanged kb kb 19:56 18:59 Standard kb kb 19:56 18:59 kb kb 19:56 18:59 Acute pancreatitis without necrosis or infection, unspecified kb kb
[2022-10-24 20:38] VITALS: TEMP 98.5
[2022-10-24 20:40] VITALS: BP 125/84; O2SAT 99
== END 2022-10-24 20:14 | disposition home or self-care (01) ==
LOC: ER 16:18
DX: K85.90 Acute pancreatitis without necrosis or infection, unspecified (principal); I10 Essential (primary) hypertension; E78.00 Pure hypercholesterolemia, unspecified
CPT/HCPCS: 85025; 36415; 80061; 83690; 80053; 74177; Q9967; J7030

== ENCOUNTER 2024-04-18 23:00 | Emergency (ER) | payer BC ==
--- OUTSIDE RECORDS SUMMARY | 2024-04-18 23:03 | XMS REPORT | Continuity of Care Document ---
Author Name Unknown Address [address] [facility]. [address] [place] [address] [facility] thconnect Address [address] [facility] [address] [place] [address] Care Team Providers Care Side Framer Name Role Phone Igor Araceli MILLS Primary Care Physician + [phone] GINETTE BANEGAS Attending Clinician Ginette Arroyo MD Attending Clinician [phone] Payers Payer Name Policy Type Policy Number Effective Date Expirati on Date Source [facility] [id number] 2020 00:00:00 Allergies, Adverse Reactions, Alerts Allergy Name Allergy Type Status Severity Reaction(s) Onset Date Inactive Date Treating Clinician Comments Source NO KNOWN ALLERGIE S SYSTEMIC Active MHEOUT NO KNOWN ALLERGIE S SYSTEMIC Active MHEOUT NO KNOWN ALLERGIE S SYSTEMIC Active MHEOUT NO KNOWN ALLERGIE S SYSTEMIC Active MHEOUT NO KNOWN ALLERGIE S SYSTEMIC Active MHEOUT NO KNOWN ALLERGIE S SYSTEMIC Active MHEOUT ALLERGIE S NOT ON FILE SYSTEMIC Active MHEOUT Social History Social Habit Start Date Stop Date Quantity Comments Source History of tobacco use Cigarette Smoker [facility] Gender identity Rohit faisal [facility] Sexual orientation [facility] Alcoholic beverage intake 2023-11-29 00:00:00 2023-11-29 00:00:00 Current drinker of alcohol (finding) [facility] History of Social function 2023-11-29 00:00:00 2023-11-29 00:00:00 [facility] Tobacco use and exposure 2023-11-14 00:00:00 2023-11-14 00:00:00 User of smokeless tobacco [facility] Tobacco Comment 2023-10-10 00:00:00 2023-10-10 00:00:00 vape [facility] Smoking Status Start Date Stop Date Source Ex-smoker 2023-11-14 00:00:00 2023-11-14 00:00:00 Carmen beltre [facility] Smokes tobacco daily 2023-10-10 00:00:00 [facility] Medications Ordered Medication Name Filled Medication Name Start Date Stop Date Current Medication? Ordering Clinician Indication Dosage Frequency Signature (SIG) Comments Components Source amoxicillin -clavulanat e (Augmentin) 875-125 MG tablet amoxicillin -clavulanat e (Augmentin) 875-125 MG tablet 11-13 00:00: 00 11-27 23:59 :00 No [id number] 875mg Q.5D Take 1 tablet by mouth in the morning and 1 tablet in the evening. Do all this for 14 days. [facility] l[facility] 20 MG tablet lisinopril 20 MG tablet 10-09 15:26: 00 Yes 1{tbl} Q12H 1 tablet in the morning and 1 tablet in the evening. [facility] carvedilol (Coreg) 6.25 MG tablet carvedilol (Coreg) 6.25 MG tablet 08-03 00:00: 00 Yes [facility] traZODone (Desyrel) 100 MG tablet traZODone (Desyrel) 100 MG tablet 08-29 00:00: 00 Yes [facility] Vital Signs Vital Name Observation Time Observation Value Comments S sahara Systolic blood pressure 2023-11-14 09:52:00 155 mm[Hg] [facility] Diastolic blood pressure 2023-11-14 09:52:00 104 mm[Hg] [facility] Body height 2023-11-14 09:47:00 185.4 cm [facility] Body weight 2023-11-14 09:47:00 120.203 kg [facility] BMI 2023-11-14 09:47:00 34.96 kg/m2 [facility] Systolic blood pressure 2023-11-14 09:52:00 155 mm[Hg] [facility] Diastolic blood pressure 2023-11-14 09:52:00 104 mm[Hg] [facility] Her [facility] Body height 2023-11-14 09:47:00 185.4 cm Rohit barbaral [facility] Body weight 2023-11-14 09:47:00 120.203 kg Rohit rial [facility] BMI 2023-11-14 09:47:00 34.96 kg/m2 Rohit rial [place] [facility] Systolic blood pressure 2023-10-10 15:22:00 139 mm[Hg] [facility] Her [facility] Diastolic blood pressure 2023-10-10 15:22:00 93 mm[Hg] [facility] Heart rate 2023-10-10 15:22:00 80 /min Memor ial [place] [facility] Body height 2023-10-10 15:22:00 185.4 cm Rohit rial [facility] Body weight 2023-10-10 15:22:00 120.203 kg Rohit rial [place] [facility] BMI 2023-10-10 15:22:00 34.96 kg/m2 Rohit barbaral [place] [facility] Systolic blood pressure 2023-10-10 15:22:00 139 mm[Hg] [facility] Her [facility] Diastolic blood pressure 2023-10-10 15:22:00 93 mm[Hg] [facility] Heart rate 2023-10-10 15:22:00 80 /min [facility] [place] [facility] Body height 2023-10-10 15:22:00 185.4 cm Rohit rial [place] [facility] Body weight 2023-10-10 15:22:00 120.203 kg Rohit rial [facility] BMI 2023-10-10 15:22:00 34.96 kg/m2 Rohit rial [place] [facility] Procedures Procedure Date / Time Performed Performing Clinician Source Retroperitoneal Ultrasound, Abdomen Ltd 2024-04-11 00:00:00 [facility] POCT URINE DIPSTICK (INTRFC) 2023-11-29 13:42:00 Ginette Banegas [facility] Cystourethroscopy 2023-11-14 00:00[facility]00 [facility] 2023-11-14 00:00:00 Lisa espinal [facility] POCT URINE DIPSTICK (INTRFC) 2023-10-10 16:18:00 Ginette Banegas [facility] E[facility] Prostate Specific Antigen Total 2023-10-10 00:00:[address] [facility] Emanuel [facility] Urine Culture 2023-10-10 00:00:00 Lisa Castellanos [facility] XR abdomen 1 view [facility] Encounters Start Date/Time End Date/Time Encounter Type Admission Type Attending [facility] Care Department Encounter ID Source 2023-11-29 13:36:58 2023-11-29 16:14:41 [id number] 2023-11-29 13:50:00 2023-11-29 14:00:00 Office Visit Makenzie Ginette Kong [facility] 250 [id number] Robinachencho Castellanos [facility] 2023-11-14 09:34:51 2023-11-14 10:44:45 [facility]patient [facility]ANE[facility] [id number] EOUT 2023-11-14 09:40:00 2023-11-14 09:50:00 Office Visit Ginette Banegas [facility] 250 [id number] Robinachencho Castellanos [facility] 2023-10-10 15:11:35 2023-10-10 16:52:23 Outpatient Elective [facility]TE BANEGAS [facility] [id number] EOUT 2023-10-10 15:00:00 2023-10-10 15:10:00 Office Visit Makenzie Ginette Dilan [facility] 250 [id number] Lisa Castellanos [facility] Results Test Description Test Time Test Comments Results Result Co mments Source Cresencio NyPOCT Urine Dipstick (INTRFC)2023-10-10 16:21:00* Test Item Value Reference Range Interpretation Comme nts POC UA Turbid (test code = 3180) Clear Clear POC UA Color (test code = 3179) Yellow Yellow POC UA pH (test code = 3187) 5.0-8.0 POC UA SG (test code = 3186) <=1.005 See_Comment [Automated Jaxtr] The system which generated this result transmitted reference range: <1.005 - 1.025. The reference range was not used to interpret this result as normal/abnormal. POC UA Glu (test code = 3181) Negative Negative mg/dL POC UA Bld (test code = 3192) Negative Negative POC UA Ket (test code = 3185) Negative Negative mg/dL POC UA Protein (test code = 3188) Negative Negative mg/dL POC UA Uro (test code = 3189) See_Comment [Automated Jaxtr] The system which generated this result transmitted reference range: 0.1 - 1.0 E.U./dL. The reference range was not used to interpret this result as normal/abnormal. POC UA Bili (test code = 3184) Negative Negative POC UA Leuk Est (test code = 3191) Large Negative A POC UA Nit (test code = 3190) Negative Negative POC Device (test code = 3198) POC Oper ID (test code = 3197) POC Performing Location (test code = 2116) [facility] Lab Interpretation (test code = 30551-6) Abnormal [facility]
[2024-04-18] MEDS ORDERED: NA CHLORIDE 0.9% 1,000 ML ONE (23:51)
[2024-04-18] MEDS ORDERED: KETOROLAC 30 MG/ML INJ ONE (23:51)
[2024-04-18] MEDS ORDERED: DIAZEPAM 10 MG/2 ML INJ SYRINGE ONE (23:51)
[2024-04-19 00:04] LABS: Absolute Lymphocytes (CBC) 0.7 K/uL (0.7-4.9); Absolute Monocytes 0.3 K/uL (0.1-1.3); Absolute Neutrophil 2.7 K/uL (1.8-8.0); Basophils % 0.3 % (0-1.3); Hematocrit 43.5 % (39.6-49.0); Hemoglobin 15.3 g/dL (13.6-17.9); Lymphocytes % 20.1 % (15.3-44.8); MCH 32.7 pg (27.0-35.0); MCHC 35.2 g/dL (32.0-36.0); MCV 92.9 fL (80-100); MPV 6.8 fL (7.6-11.3); Monocytes % 7.3 % (3.3-12.3); Neutrophils % 72.3 % (41.7-73.7); Nucleated Red Blood Cells % 0.2 % (0-0); Platelets 105 thou/uL (152-406); RBC Red Blood Cell Count 4.68 M/uL (4.33-5.43); Red Cell Distribution Width 14.8 % (12.1-15.2)
[2024-04-19 00:22] LABS: PT Prothrombin Time 10.7 SECONDS (9.4-12.5); PTT, Activated Partial Thromb 31.3 SECONDS (24.3-36.9); Protime INR 1.02
[2024-04-19 00:35] LABS: ALT/SGPT 120 U/L (16-61); AST/SGOT 136 U/L (15-37); Albumin 2.8 g/dL (3.4-5.0); Albumin/Globulin Ratio 0.5 (1.1-1.8); Alkaline Phosphatase 160 U/L (45-117); Anion Gap 14.5 mEq/L (5.0-15.0); BUN Blood Urea Nitrogen 14 mg/dL (7-18); Bicarbonate 22 mEq/L (21-32); Bilirubin Direct 0.2 mg/dL (0-0.2); Bilirubin Indirect, Calculated 0.3 mg/dL (0.2-0.8); Bilirubin Total 0.5 mg/dL (0.2-1.0); Globulin 5.1 g/dL (2.3-3.5); Glomerular Filtration Rate 96 ml/min (=/>90); Glucose Level 90 mg/dL (74-106); Potassium 3.5 mEq/L (3.5-5.1); Protein, Total 7.9 g/dL (6.4-8.2); Sodium Level 132 mEq/L (136-145)
[2024-04-19 01:08] LABS: Specific Gravity 1.012 (1.005-1.030); Sqamous Epithelial <5 /HPF (None Seen); Urine Bacteria None Seen /HPF (<20); Urine Bilirubin NEGATIVE (Negative); Urine Blood Negative (Negative); Urine Clarity Turbid (Clear); Urine Color Light-Yellow (Yellow); Urine Crystals Unidentified Few /HPF (None Seen); Urine Culture Reflex Order NOT NEEDED; Urine Glucose NEGATIVE (Negative); Urine Ketones NEGATIVE (Negative); Urine Microscopic Reflex YN ORDER UMIC; Urine Mucus Slight /HPF (None Seen); Urine Nitrite NEGATIVE (Negative); Urine Protein TRACE (Negative); Urine RBC <5 /HPF (None Seen); Urine Urobilinogen Normal (Normal); Urine WBC <5 /HPF (<5); Urine pH 5.5 (5.0-7.0)
[2024-04-19 01:32] LABS: Barbiturates NEGATIVE (NEGATIVE); Benzodiazepines NEGATIVE (NEGATIVE); Cocaine NEGATIVE (NEGATIVE); METHAMPHETAM NEGATIVE (NEGATIVE); Methadone NEGATIVE (NEGATIVE); Opiates NEGATIVE (NEGATIVE); Phencyclidine NEGATIVE (NEGATIVE); THC Cannibis NEGATIVE (NEGATIVE)
[2024-04-19 03:06] LABS: SARS-CoV-2 Antigen CONTROL BLUE LINE VIS/BG OK; SARS-CoV-2 Antigen Rapid Res Negative (Negative)
--- NOTE | 2024-04-19 03:19 | EDPHYS ---
Physician Documentation [facility] Name: Ayana Chacko III Age: 48 yrs Sex: Male : 1975 Arrival Date: 04/18/2024 Time: 23:00 Bed 14 Private MD: Jame Cheng HPI: 04/18 23:27 This 48 yrs old Male presents to ER via Wheelchair with complaints of Hip Pain. cp 23:27 The patient or guardian reports pain. cp 23:27 sustained from history of right hip replacement surgery last year. cp 23:27 Patient reports prescribed hydrocodone not working for hip pain. Concerned that he is cp not feeling well today. 23:27 Associated signs and symptoms: Pertinent positives: cough, Pertinent negatives: cp abdominal pain, diarrhea, vomiting. Historical: - Allergies: 23:33 No Known Allergies; ha1 - PMHx: 23:33 Hypercholesterolemia; Hypertensive disorder; ha1 - PSHx: 23:33 HERNIA REPAIR (December 2009); RIGHT HIP (2023); ha1 - Immunization history:: Adult Immunizations up to date. - Infectious Disease History:: Denies. - Social history:: Smoking status: Patient reports the use of cigarette tobacco products, denies chronic smoking, but will smoke occasionally. ROS: 23:30 Constitutional: Negative for body aches, chills, fever, poor PO intake, cp 23:30 Respiratory: Positive for cough, with no reported sputum, cp 23:30 Eyes: Negative for injury, pain, redness, and discharge, cp 23:30 Cardiovascular: Negative for chest pain, 23:30 Abdomen/GI: Negative for abdominal pain, vomiting, diarrhea, constipation, 23:30 Neuro: Negative for altered mental status, dizziness, headache, weakness, 23:30 All other systems are negative, cp Exam: 23:35 Constitutional: The patient appears in no acute distress, alert, awake, cp non-diaphoretic, non-toxic, well developed, well nourished, obese, 23:35 Head/Face: Normocephalic, atraumatic. cp 23:35 Eyes: Periorbital structures: appear normal, Conjunctiva: normal, no exudate, no injection, Sclera: no appreciated abnormality, Lids and lashes: appear normal, bilaterally, 23:35 ENT: External ear(s): are unremarkable, Nose: is normal, Mouth: Lips: moist, Oral mucosa: moist, Posterior pharynx: Airway: no evidence of obstruction, patent, erythema, is not appreciated, exudate, is not appreciated, 23:35 Neck: ROM/movement: is normal, is supple, without pain, no range of motions limitations, no meningismus, no nuchal rigidity, 23:35 Chest/axilla: Inspection: normal, 23:35 Cardiovascular: Rate: normal, Rhythm: regular, Edema: is not appreciated, JVD: is not appreciated, 23:35 Respiratory: the patient does not display signs of respiratory distress, Respirations: normal, no use of accessory muscles, no retractions, labored breathing, is not present, Breath sounds: are clear throughout, no decreased breath sounds, no stridor, no wheezing, 23:35 Abdomen/GI: Inspection: obese Palpation: abdomen is soft and non-tender, in all cp quadrants, 23:35 Back: pain, is absent, ROM is normal, 23:35 Musculoskeletal/extremity: Extremities: noted in the right hip: pain, tenderness, ROM: limited passive range of motion due to pain, in the right hip, 23:35 Skin: cellulitis, is not appreciated, no rash present. cp 23:35 Neuro: Orientation: to person, place \T\ time. Mentation: is normal, Motor: moves all fours, strength is normal, 04/19 00:02 ECG was reviewed by the Attending Physician. cp Vital Signs: 04/18 23:15 BP 137 / 93; Pulse 92; Resp 17 S; Temp 98.2(O); Pulse Ox 97% on R/A; Weight 120.2 kg; ha1 Height 6 ft. 2 in. ; Pain 5/10; 04/19 00:00 BP 127 / 75; Pulse 84; Resp 17; Pulse Ox 96% on R/A; rg5 01:00 BP 124 / 72; Pulse 83; Resp 18; Pulse Ox 96% on R/A; rg5 02:00 BP 133 / 74; Pulse 87; Resp 17; Pulse Ox 97% ; rg5 03:00 BP 140 / 75; Pulse 83; Resp 17; Pulse Ox 98% on R/A; Pain 0/10; rg5 08 23:15 Body Mass Index 34.02 (120.20 kg, 187.96 cm) ha1 04/18 23:15 Pain Scale: Adult ha1 03:00 Pain Scale: Adult rg5 MDM: 04/18 23:24 Medical Screening Exam initiated cp 04/19 00:00 Differential diagnosis: hip fracture, intertrochanteric fracture, femoral neck cp fracture, femoral shaft fracture, bursitis, chronic pain. 03:16 Data reviewed: vital signs, nurses notes, lab test result(s), EKG, radiologic studies, cp plain films, and as a result, I will discharge patient. I considered the following discharge prescriptions or medication management in the emergency department Medications were administered in the Emergency Department. See MAR. Independent interpretation of the following test(s) in the Emergency Department EKG: See my EKG interpretation above. Care significantly affected by the following chronic conditions: Hypertension, Obesity. Counseling: I had a detailed discussion with the patient and/or guardian regarding the historical points, exam findings, and any diagnostic results supporting the discharge/admit diagnosis, lab results, radiology results, to return to the emergency department if symptoms worsen or persist or if there are any questions or concerns that arise at home. Response to treatment: the patient's symptoms have markedly improved after treatment, and as a result, I will discharge patient. 04/18 23:25 Order name: Acetaminophen; Complete Time: 01:20 cp 04/18 23:25 Order name: Basic Metabolic Panel; Complete Time: 01:20 cp 04/19 01:20 Interpretation: Normal except: NA 132. cp 04/18 23:25 Order name: CBC with Diff; Complete Time: 01:20 cp 04/19 01:21 Interpretation: Normal except: WBC 3.70; PLT 105; MPV 6.8. cp 04/18 23:25 Order name: ETOH Level; Complete Time: 01:20 cp 04/19 01:20 Interpretation: Abnormal: ETOH 358. cp 04/18 23:25 Order name: Hepatic Function; Complete Time: :20 cp 04/19 01:21 Interpretation: Abnormal: AST 136; ALT 120; ALK 160; ALB 2.8; GLOB 5.1; A/G 0.5. cp 04/18 23:25 Order name: PT-INR; Complete Time: 01:20 cp 04/18 23:25 Order name: Ptt, Activated; Complete Time: :20 cp 04/18 23:25 Order name: Salicylate; Complete Time: 01:20 cp 04/18 23:25 Order name: Urinalysis w/ reflexes; Complete Time: 01:20 cp 04/19 01:50 Interpretation: Normal except: [facility] Turbid; UPROT TRACE. cp 04/18 23:25 Order name: Urine Drug Screen; Complete Time: 01:33 cp 04/19 01:33 Interpretation: Reviewed. cp 04/18 23:33 Order name: Influenza Screen (a \T\ B) cp 04/18 23:33 Order name: SARS RAPID cp 04/18 23:33 Order name: Strep cp 04/19 03:14 Order name: Throat Culture EDMS 02 23:33 Order name: XRAY Hip RIGHT 2 view cp 04/18 23:25 Order name: EKG - Nurse/Tech; Complete Time: 00:13 cp 04/18 23:25 Order name: IV Saline Lock; Complete Time: 00:13 cp 04/18 23:25 Order name: Labs collected and sent; Complete Time: 00:01 cp EC:02 Rate is 82 beats/min. Rhythm is regular. ND interval is prolonged at 226 msec. QRS cp interval is prolonged at 106 msec. QT interval is normal. T waves are Inverted in lead aVR. Interpreted by me. Reviewed by me. Administered Medications: 00:01 Drug: NS 0.9% IV 1000 ml IV at 1 bolus Per protocol; to be given as a bolus over 60 rg5 minutes Route: IV; Rate: 1 bolus; Site: right antecubital; 02:30 Follow up: IV Status: Completed infusion; IV Intake: 1000ml rg5 00:01 Drug: Ketorolac IVP 15 mg IVP once Route: IVP; Site: right antecubital; rg5 00:13 Follow up: Response: No adverse reaction rg5 00:01 Drug: Diazepam IVP 5 mg IVP once Route: IVP; Site: right antecubital; rg5 00:12 Follow up: Response: No adverse reaction rg5 Disposition Summary: 04/19/24 03:18 Discharge Ordered Notes: Location: Home cp Problem: new cp Symptoms: have improved cp Condition: Stable cp Diagnosis - Pain in right hip cp - Alcohol use, unspecified with intoxication cp Followup: cp - With: Private Physician - When: 2 - 3 days - Reason: Recheck today's complaints Discharge Instructions: - Discharge Summary Sheet cp - Alcohol Intoxication cp - Hip Pain cp Forms: - Medication Reconciliation Form cp - Antibiotic Education cp - Prescription Opioid Use cp - Patient Portal Instructions cp - Leadership Thank You Letter cp Prescriptions: - Celebrex 200 mg Oral Capsule - take 1 capsule ORAL route once daily As needed take with food; 20 capsule; cp Refills: 0, Product Selection Permitted Signatures: Dispatcher [employer] EDMS Jame Méndez PA PA cp Ayala, Heidy RN RN ha1 Nathanael Alcocer RN RN rg5 Corrections: (The following items were deleted from the chart) 04/18 23:33 23:25 Suicide Screening ([place]) ordered. cp cp
--- NOTE | 2024-04-19 03:19 | ER ---
Nurse's Notes [facility] Name: Ayana Chacko III Age: 48 yrs Sex: Male : 1975 Arrival Date: 04/18/2024 Time: 23:00 Bed 14 Private MD: Diagnosis: Pain in right hip;Alcohol use, unspecified with intoxication Presentation: 04/18 23:15 Chief complaint: Patient states: RIGHT HIP PAIN. FLU LIKE SYMPTOMS. ha1 23:15 Coronavirus screen: Client denies travel out of the [place] in the last 14 days. Ebola ha1 Screen: No symptoms or risks identified at this time. Initial Sepsis Screen: Does the patient meet any 2 criteria? No. Patient's initial sepsis screen is negative. Does the patient have a suspected source of infection? No. Patient's initial sepsis screen is negative. Risk Assessment: Do you want to hurt yourself or someone else? Patient reports no desire to harm self or others. Onset of symptoms was April 18, 2024. 23:15 Method Of Arrival: Wheelchair ha1 23:15 Acuity: ANTHONY 3 ha1 Historical: - Allergies: 23:33 No Known Allergies; ha1 - PMHx: 23:33 Hypercholesterolemia; Hypertensive disorder; ha1 - PSHx: 23:33 HERNIA REPAIR (December 2009); RIGHT HIP (2023); ha1 - Immunization history:: Adult Immunizations up to date. - Infectious Disease History:: Denies. - Social history:: Smoking status: Patient reports the use of cigarette tobacco products, denies chronic smoking, but will smoke occasionally. Screenin/09 00:00 [facility] ED Fall Risk Assessment (Adult) History of falling in the last 3 months, rg5 including since admission No falls in past 3 months (0 pts) Confusion or Disorientation No (0 pts) Intoxicated or Sedated No (0 pts) Impaired Gait Yes (1 pt) Mobility Assist Device Used Yes (1 pt) Altered Elimination No (0 pt) Score/Fall Risk Level 0 - 2 = Low Risk Oriented to surroundings, Maintained a safe environment, Hourly rounding (assess needs \T\ fall precautionary measures) done. Abuse screen: Denies threats or abuse. Nutritional screening: No deficits noted. Tuberculosis screening: No symptoms or risk factors identified. Assessment: 04/18 23:35 General: Appears in no apparent distress. Behavior is calm, cooperative, appropriate rg5 for age. 23:35 General:. Pain: Complains of pain in hip Pain currently is 7 out of 10 on a pain scale. rg5 Quality of pain is described as aching. Neuro: Level of Consciousness is awake, alert, obeys commands, Oriented to person, place, time. Cardiovascular: Denies chest pain, Patient's skin is warm and dry. Respiratory: Airway is patent Trachea midline Respiratory effort is even, unlabored, Respiratory pattern is regular, symmetrical. GI: Abdomen is round non-distended, Abd is soft and non tender. : No signs and/or symptoms were reported regarding the genitourinary system. EENT: No deficits noted. Derm: Skin is intact, Skin is dry, Skin is normal. Musculoskeletal: Circulation, motion, and sensation intact. Range of motion:. 04/19 01:00 Reassessment: No changes from previously documented assessment. Patient and/or family rg5 updated on plan of care and expected duration. Pain level reassessed. 02:00 Reassessment: No changes from previously documented assessment. Patient and/or family rg5 updated on plan of care and expected duration. Pain level reassessed. Patient states symptoms have improved. 03:03 Reassessment: Patient and/or family updated on plan of care and expected duration. Pain rg5 level reassessed. Patient is alert, oriented x 3, equal unlabored respirations, skin warm/dry/pink. Vital Signs: 04/18 23:15 BP 137 / 93; Pulse 92; Resp 17 S; Temp 98.2(O); Pulse Ox 97% on R/A; Weight 120.2 kg; ha1 Height 6 ft. 2 in. ; Pain 5/10; 04/19 00:00 BP 127 / 75; Pulse 84; Resp 17; Pulse Ox 96% on R/A; rg5 01:00 BP 124 / 72; Pulse 83; Resp 18; Pulse Ox 96% on R/A; rg5 02:00 BP 133 / 74; Pulse 87; Resp 17; Pulse Ox 97% ; rg5 03:00 BP 140 / 75; Pulse 83; Resp 17; Pulse Ox 98% on R/A; Pain 0/10; rg5 04/18 23:15 Body Mass Index 34.02 (120.20 kg, 187.96 cm) ha1 04/18 23:15 Pain Scale: Adult ha1 03:00 Pain Scale: Adult rg5 Vitals: 00:00 Cardiac Rhythm Assessment Regular Sinus rhythm. rg5 ED Course: 04/18 23:05 Patient arrived in ED. ra3 23:24 Jame Méndez PA is PHCP. cp 23:24 Jame Silverio MD is Attending Physician. cp 23:32 Nathanael Alcocer, CYNDIE is Primary Nurse. rg5 23:33 Triage completed. ha1 23:42 Inserted saline lock: 20 gauge in right forearm, using aseptic technique. Blood sa1 collected. Flushed with 10 mL NS. 23:42 Initial lab(s) drawn, sent to lab. sa1 23:58 EKG done, by ED staff, reviewed by Jame WRIGHT. sa1 23:59 XRAY Hip RIGHT 2 view In Process Unspecified. EDMS 04/19 00:00 No provider procedures requiring assistance completed. Patient maintains SpO2 rg5 saturation greater than 95% on room air. 00:00 Patient has correct armband on for positive identification. Bed in low position. Call rg5 light in reach. Side rails up X 1. Door closed. Noise minimized. Verbal reassurance given. 00:00 Arm band placed on right wrist. rg5 03:28 IV discontinued, bleeding controlled, No redness/swelling at site. Pressure dressing rg5 applied. 03:28 Provided Education on: POST ER CARE DONE. rg5 Administered Medications: 00:01 Drug: NS 0.9% IV 1000 ml IV at 1 bolus Per protocol; to be given as a bolus over 60 rg5 minutes Route: IV; Rate: 1 bolus; Site: right antecubital; 02:30 Follow up: IV Status: Completed infusion; IV Intake: 1000ml rg5 00:01 Drug: Ketorolac IVP 15 mg IVP once Route: IVP; Site: right antecubital; rg5 00:13 Follow up: Response: No adverse reaction rg5 00:01 Drug: Diazepam IVP 5 mg IVP once Route: IVP; Site: right antecubital; rg5 00:12 Follow up: Response: No adverse reaction rg5 Medication: 00:00 VIS not applicable for this client. rg5 Intake: 02:30 IV: 1000ml; Total: 1000ml. rg5 Outcome: 03:18 Discharge ordered by . cp 03:27 Discharged to home via wheelchair, rg5 03:27 Condition: stable 03:27 Discharge instructions given to patient, Instructed on discharge instructions, Demonstrated understanding of instructions, follow-up care, medications, Prescriptions given X 1, 03:28 Patient left the ED. rg5 Signatures: Dispatcher [employer] EDMS Jame Méndez PA PA cp Ayala, Heidy RN RN ha1 Karime Rivera ra3 Nathanael Alcocer RN RN rg5 Sultan Katie 1
[2024-04-19 03:49] VITALS: TEMP 98.2
[2024-04-19 03:54] VITALS: BP 140/75; O2SAT 98
--- NOTE | 2024-04-19 06:12 | RAD REPORT ---
XR HIP 2 OR MORE VIEWS RIGHT INDICATION: Pain COMPARISON: Pelvic radiograph 12/31/2023. CT hip 04/11/2024 TECHNIQUE: 2 views of the right hip FINDINGS: BONES: Status post previous right total hip arthroplasty. There is heterotopic calcification near gre ater trochanter with associated trace periprosthetic lucency, concerning for for hardware failure. The femoroacetabular alignment of the prosthesis may be slightly altered when compared to exam from . No acute fracture. SOFT TISSUE: Unremarkable. OTHER: None. IMPRESSION: Heterotopic calcification near greater trochanter with associated trace periprosthetic lucency, christian rning for hardware failure. Electronically signed by: Elidia Garibay MD 04/19/2024 12:50 AM [facility] Due to temporary technical issues with the PACS/[employer] [facility] scribe reporting system, reports are being sign ed by the in-house radiologist without review as a courtesy to ensure prompt reporting the interpreting radiologist is fully responsible for the content of the report. Transcribed Date/Time: 04/19/2024 6:12 AM
--- NOTE | 2024-04-21 12:49 | EKG ---
Test Date: 2024-04-18 Test Time: 23:54:47 [employer]: MEASUREMENT RESULTS: Intervals: Rate: 82 OK: 226 QRSD: 106 QT: 392 QTc: 457 [place]: P: 20 OK: 226 QRS: 76 T: 62 INTERPRETIVE STATEMENTS: Sinus rhythm with 1st degree AV block Otherwise normal ECG Compared to ECG 01/25/2021 17:16:44 First degree AV block now present Sinus tachycardia no longer present Electronically Signed On 04-21-24 12:43:54 COMPUTER PROGRAMMING MANAGER by Jasper Cardozo
== END 2024-04-19 03:28 | disposition home or self-care (01) ==
LOC: ER 23:00
DX: M25.551 Pain in right hip (principal); F10.929 Alcohol use, unspecified with intoxication, unspecified; Z11.52 Encounter for screening for COVID-19; Z96.641 Presence of right artificial hip joint; F17.210 Nicotine dependence, cigarettes, uncomplicated
CPT/HCPCS: 96361; 93005; 87070; 85025; 81001; 80048; 36415; 85610; 80076; 87081; 85730; 80307; 87804 ×2; 73502; 96375; 96374; 99284; 80143; 80179; 82077; 87811; J3360; J7030